=== PATIENT | female | born 1955 | race Caucasian/White ===

== ENCOUNTER 2022-07-22 13:40 | Emergency (ER) | payer OTHER, SELFPAY ==
[2022-07-22 13:55] VITALS: BP 127/83; PULSE 65; RESP 16; TEMP 36.6; O2SAT 95; BMI 32.1
--- NOTE | 2022-07-22 15:16 | CRLHL7_ITS ---
For Patients: As a result of the Century Cures Act, medical imaging exams and procedure reports are released immediately into your electronic medical record. You may view this report before your referring provider. If you have questions, please contact your health care provider. Indication: Epigastric and right upper quadrant pain. Technique: Sonography of the abdomen was performed limited to the structures discussed below Comparison: No Findings: Gallbladder wall thickness is normal. There is no sludge, calculus or pericholecystic fluid collection. The gallbladder wall measures 3 millimeters. There is no sonographic Mejia`s sign. The common duct measures 5 millimeters which is normal. An echogenic non shadowing focus is identified within the common bile duct measures about 4 millimeters. This could represent a small common duct stone. The liver is normal size without focal mass or biliary ductal dilatation. No perihepatic ascites. Probable mild steatosis. The right kidney is unremarkable in size and appearance. The right kidney measures 9.8 x 4.6 x 4.3 centimeters. Aorta and cava as visualized appears normal. The pancreas is partially visualized appear normal. Portions are obscured by bowel gas. Impression: 1. The gallbladder appears normal. No evidence of acute cholecystitis. 2. Possible stone within the common bile duct measuring 3 millimeters. However, there is no intra or extrahepatic biliary ductal dilatation. 3. The liver is normal in size. Abnormal echogenicity which suggests steatosis. Dictated by Harpal Rocha MD @ 07/22/2022 5:02:49 PM (Electronically Signed)
--- NOTE | 2022-07-22 15:18 | ED.ABDPAIN ---
HPI - Abdominal Pain General Chief Complaint: Abdominal Pain <Bennett Domingo MD - Last Filed: 07/24/22 12:29> Stated Complaint: Vomiting Abdominal Pain <Bennett Domingo MD - Last Filed: 07/24/22 12:29> Time Seen by Provider: 07/22/22 15:05 <Bennett Domingo MD - Last Filed: 07/24/22 12:29> History of Present Illness HPI narrative: 67-year-old woman presenting to the emergency department ambulatory with complaint of mid upper abdominal pain ?underneath your breast bone you know?. It is just a pain any could is been present now going on 36 hours. Started in the middle of the night. She is not feeling short of breath. The pain she gestures to the epigastrium and into both sides radiating around to the middle of her back. She can not get comfortable and really any position. Not really any exacerbating factors either other than direct pressure. The pain preceded vomiting where she will vomit up anything even Pepto-Bismol. She has been trying that for this discomfort. Has not had any hematemesis. She denies constipation in fact stools might be a little looser at times but not diarrheal. . Denies having a history of GERD//heartburn. She is not describing any lower extremity symptoms. Does not have a cardiac history that she knows of. No fevers. Family history with significant cardiac disease with father having had an SD by age of 50. Her daughter has had a cholecystectomy No regular health problems. She does have cervical radiculopathy of some sort with a history of injections. It has not been flaring lately. Takes only gabapentin and a multivitamin. <Bennett Domingo MD - Last Filed: 07/24/22 12:29> Related Data Allergies/Adverse Reactions: Allergies Allergy/AdvReac Type Severity Reaction Status Date / Time Pennicillins AdvReac Mild Uncoded 07/22/22 17:17 <Bennett Domingo MD - Last Filed: 07/24/22 12:29> Review of Systems Status of ROS Reports: 10 or more systems reviewed and unremarkable except as noted in History and below <Bennett Domingo MD - Last Filed: 07/24/22 12:29> PFSH PFSH Social History: Social History Smoking Status: Never smoker Do you use any of these nicotine containing products: None Second hand tobacco smoke exposure: No How often do you have a drink containing alcohol: never How often do you have six or more drinks on one occasion: Never AUDIT-C Alcohol total score: 0 Non-prescribed substance use: denies use service: No <Bennett Domingo MD - Last Filed: 07/24/22 12:29> Exam Narrative: Exam Narrative: Is generally well appearing. In no significant distress. Breathing easily. Oropharynx is moist with a black and tongue consistent with Pepto-Bismol Neck seems supple Lungs are clear Cardiovascular with regular rate and rhythm. I do not detect any murmur rub or gallop. Abdomen with normoactive bowel sounds is soft. Overweight. She is moderately tender without guarding in the epigastrium and under the right rib margin/right upper quadrant. No peritoneal signs generally. No masses. Extremities are without edema. She is moving all extremities without difficulty. A perfused peripherally. No sensory deficits apparent. <Bennett Domingo MD - Last Filed: 07/24/22 12:29> Const: Vital Signs, click to edit/add: Vital Signs - 24 hr 07/22/22 13:55 07/22/22 16:02 Temperature 97.9 F Pulse Rate [Pulse Oximeter] 65 65 Respiratory Rate 16 Blood Pressure [Ri ght Upper Arm] 127/83 127/69 Pulse Oximetry 95 97 Oxygen Delivery Me thod Room Air Room Air <Bennett Domingo MD - Last Filed: 07/24/22 12:29> Vital Signs, click to edit/add: Vital Signs - 24 hr 07/22/22 13:55 07/22/22 16:02 Temperature 97.9 F Pulse Rate [Pulse Oximeter] 65 65 Respiratory Rate 16 Blood Pressure [Ri ght Upper Arm] 127/83 127/69 Pulse Oximetry 95 97 Oxygen Delivery Me thod Room Air Room Air <Owen Sandoval MD - Last Filed: 07/22/22 17:57> Documenting provider has reviewed patient's vital signs: yes <Bennett Domingo MD - Last Filed: 07/24/22 12:29> Course Course Hospital Course: Initiating fluids, antiemetic, ketorolac. <Bennett Domingo MD - Last Filed: 07/24/22 12:29> Reevaluation(s) Reevaluation #1: not improved so gi cocktail trial which was of no help then given a morphine prn and sent for imaging. <Bennett Domingo MD - Last Filed: 07/24/22 12:29> Reevaluation #2: Discussed CT results with patient. Recommend omeprazole 20 mg daily and outpatient EGD. <Owen Sandoval MD - Last Filed: 07/22/22 17:57> Vital Signs Vital signs: Initial Vital Signs Temperature 97.9 F 07/22/22 13:55 Temperature Source Temporal Artery Scan 07/22/22 13:55 Pulse Rate 65 07/22/22 13:55 Pulse Rhythm 07/22/22 13:55 Respiratory Rate 16 07/22/22 13:55 Blood Pressure 127/83 07/22/22 13:55 Blood Pressure Mean 97 07/22/22 13:55 Blood Pressure Position Sitting 07/22/22 13:55 Pulse Oximetry 95 07/22/22 13:55 Oxygen Delivery Method 07/22/22 13:55 Vital Signs Temperature 97.9 F 07/22/22 13:55 Pulse Rate 65 07/22/22 13:55 Respiratory Rate 16 07/22/22 13:55 Blood Pressure 127/83 07/22/22 13:55 Pulse Oximetry 95 07/22/22 13:55 Oxygen Delivery Method 07/22/22 13:55 Temperature 97.9 F 07/22/22 13:55 Pulse Rate 66 07/22/22 18:05 Respiratory Rate 18 07/22/22 18:05 Blood Pressure 137/74 07/22/22 18:05 Pulse Oximetry 95 07/22/22 18:05 Oxygen Delivery Method 07/22/22 16:02 <Bennett Domingo MD - Last Filed: 07/24/22 12:29> Initial Vital Signs Temperature 97.9 F 07/22/22 13:55 Temperature Source Temporal Artery Scan 07/22/22 13:55 Pulse Rate 65 07/22/22 13:55 Pulse Rhythm 07/22/22 13:55 Respiratory Rate 16 07/22/22 13:55 Blood Pressure 127/83 07/22/22 13:55 Blood Pressure Mean 97 07/22/22 13:55 Blood Pressure Position Sitting 07/22/22 13:55 Pulse Oximetry 95 07/22/22 13:55 Oxygen Delivery Method 07/22/22 13:55 Vital Signs Temperature 97.9 F 07/22/22 13:55 Pulse Rate 65 07/22/22 13:55 Respiratory Rate 16 07/22/22 13:55 Blood Pressure 127/83 07/22/22 13:55 Pulse Oximetry 95 07/22/22 13:55 Oxygen Delivery Method 07/22/22 13:55 Temperature 97.9 F 07/22/22 13:55 Pulse Rate 66 07/22/22 18:05 Respiratory Rate 18 07/22/22 18:05 Blood Pressure 137/74 07/22/22 18:05 Pulse Oximetry 95 07/22/22 18:05 Oxygen Delivery Method 07/22/22 16:02 <Owen Sandoval MD - Last Filed: 07/22/22 17:57> MDM - Abdominal Pain MDM Narrative Medical decision making narrative: I would suspect gallbladder related pain most likely. Certainly could be vascular anomaly/dissection. dyspepsia could do this as well with esophageal spasming of some sort. Reproducibility duration and location suggests not cardiovascular. Will order limited abdominal ultrasound with initial order set. Tech reports that other than fatty liver abdominal ultrasound is unremarkable. Pending formal review. Pain is still present in location per physical exam. We will trial GI cocktail that does not help then morphine and move towards CT scan abdomen pelvis Patient feeling better. <Bennett Domingo MD - Last Filed: 07/24/22 12:29> I would suspect gallbladder related pain most likely. Certainly could be vascular anomaly/dissection. The dyspepsia could do this as well with esophageal spasming of some sort. Reproducibility duration and location suggests not cardiovascular. Will order limited abdominal ultrasound with initial order set. Tech reports that other than fatty liver abdominal ultrasound is unremarkable. Pending formal review. Pain is still present in location per physical exam. We will trial GI cocktail that does not help then morphine and move towards CT scan abdomen pelvis Patient feeling better. <Owen Sandoval MD - Last Filed: 07/22/22 17:57> Lab Data Attestation: I reviewed the patient's lab results. <Bennett Domingo MD - Last Filed: 07/24/22 12:29> Labs: Lab Results 07/22/22 07/22/22 07/22/22 Range/Units 15:31 15:45 15:45 WBC 8.27 (4.50-11.00) K/uL RBC 5.04 (4.00-5.20) m/uL Hgb 14.7 (12.0-16.0) gm/dL Hct 44.2 (33.0-51.0) % MCV 88 (80-100) fL MCH 29 (26-34) pg MCHC 33 (32-36) gm/dL RDW Coeff of Divya 12.4 (11.5-15.5) % Plt Count 215 (140-440) K/uL Neut % (Auto) 77.3 H (42.0-72.0) % Lymph % (Auto) 14.4 L (20-44) % [place] % (Auto) 6.7 (0.0-11.0) % Eos % (Auto) 0.7 (0.0-7.0) % Baso % (Auto) 0.4 (0.0-3.0) % Neut # (Auto) 6.40 (1.7-7.0) K/uL Lymph # (Auto) 1.20 (0.90-2.90) K/uL [place] # (Auto) 0.60 (0.00-0.90) K/UL Eos # (Auto) 0.06 (0.00-0.50) K/uL Baso # (Auto) 0.03 (0.00-0.30) K/uL Abs Immat Gran (auto) 0.04 (0.00-0.30) K/uL D-Dimer Quant (PE/DVT) (0.00-0.50) ug/ml Sodium 138 (135-149) mmol/L Potassium 4.1 (3.6-5.1) mmol/L Chloride 98 (96-114) mmol/L Carbon Dioxide 29 (20-32) mmol/L BUN 15 (7-30) mg/dL Creatinine 0.8 (0.5-1.5) mg/dL Estimated Creat Clear 42.32 Estimated GFR 82 ml/min Glucose 108 (60-115) mg/dL Calcium 9.9 (8.4-10.6) mg/dL Total Bilirubin 0.6 (0.1-1.5) mg/dL Direct Bilirubin 0.2 (0.0-0.5) mg/dL AST 29 (12-35) U/L ALT 25 (4-35) U/L Alkaline Phosphatase 97 (40-150) U/L Troponin I < 0.01 L (0.01-0.04) ng/mL C-Reactive Protein 0.8 (0.5-1.0) mg/dL Total Protein 8.1 (6.0-8.3) g/dL Albumin 4.9 (3.3-5.0) g/dL Lipase 66 (23-300) U/L Urine Color (Yellow) Urine Appearance (Clear) Urine pH (5.0-8.5) Ur Specific [place] (1.000-1.030) Urine Protein (Negative) Urine Glucose (UA) (Negative) Urine Ketones (Negative) Urine Blood (Negative) Urine Nitrite (Negative) Urine Bilirubin (Negative) Urine Urobilinogen (0.2-1.0) Ur Leukocyte Esterase (Negative) Urine RBC (0-2) Urine WBC (0-5) Ur Squamous Epith Cells (None-Few) Urine Bacteria (None) Ethyl Alcohol < 0.01 L (0.01-0.03) % SARS-CoV-2 (PCR) Negative SARS-CoV-2 (Negative) 07/22/22 07/22/22 Range/Units 15:45 17:05 WBC (4.50-11.00) K/uL RBC (4.00-5.20) m/uL Hgb (12.0-16.0) gm/dL Hct (33.0-51.0) % MCV (80-100) fL MCH (26-34) pg MCHC (32-36) gm/dL RDW Coeff of Divya (11.5-15.5) % Plt Count (140-440) K/uL Neut % (Auto) (42.0-72.0) % Lymph % (Auto) (20-44) % [place] % (Auto) (0.0-11.0) % Eos % (Auto) (0.0-7.0) % Baso % (Auto) (0.0-3.0) % Neut # (Auto) (1.7-7.0) K/uL Lymph # (Auto) (0.90-2.90) K/uL [place] # (Auto) (0.00-0.90) K/UL Eos # (Auto) (0.00-0.50) K/uL Baso # (Auto) (0.00-0.30) K/uL Abs Immat Gran (auto) (0.00-0.30) K/uL D-Dimer Quant (PE/DVT) 1.76 H (0.00-0.50) ug/ml Sodium (135-149) mmol/L Potassium (3.6-5.1) mmol/L Chloride (96-114) mmol/L Carbon Dioxide (20-32) mmol/L BUN (7-30) mg/dL Creatinine (0.5-1.5) mg/dL Estimated Creat Clear Estimated GFR ml/min Glucose (60-115) mg/dL Calcium (8.4-10.6) mg/dL Total Bilirubin (0.1-1.5) mg/dL Direct Bilirubin (0.0-0.5) mg/dL AST (12-35) U/L ALT (4-35) U/L Alkaline Phosphatase (40-150) U/L Troponin I (0.01-0.04) ng/mL C-Reactive Protein (0.5-1.0) mg/dL Total Protein (6.0-8.3) g/dL Albumin (3.3-5.0) g/dL Lipase (23-300) U/L Urine Color Yellow (Yellow) Urine Appearance Clear (Clear) Urine pH 6.5 (5.0-8.5) Ur Specific [place] 1.010 (1.000-1.030) Urine Protein Negative (Negative) Urine Glucose (UA) Negative (Negative) Urine Ketones Negative (Negative) Urine Blood Trace-intact A (Negative) Urine Nitrite Negative (Negative) Urine Bilirubin Negative (Negative) Urine Urobilinogen 0.2 (0.2-1.0) Ur Leukocyte Esterase 1+ A (Negative) Urine RBC 2-5 A (0-2) Urine WBC 10-25 A (0-5) Ur Squamous Epith Cells Few (None-Few) Urine Bacteria Few A (None) Ethyl Alcohol (0.01-0.03) % SARS-CoV-2 (PCR) (Negative) <Bennett Domingo MD - Last Filed: 07/24/22 12:29> Lab Results 07/22/22 07/22/22 07/22/22 Range/Units 15:31 15:45 15:45 WBC 8.27 (4.50-11.00) K/uL RBC 5.04 (4.00-5.20) m/uL Hgb 14.7 (12.0-16.0) gm/dL Hct 44.2 (33.0-51.0) % MCV 88 (80-100) fL MCH 29 (26-34) pg MCHC 33 (32-36) gm/dL RDW Coeff of Divya 12.4 (11.5-15.5) % Plt Count 215 (140-440) K/uL Neut % (Auto) 77.3 H (42.0-72.0) % Lymph % (Auto) 14.4 L (20-44) % [place] % (Auto) 6.7 (0.0-11.0) % Eos % (Auto) 0.7 (0.0-7.0) % Baso % (Auto) 0.4 (0.0-3.0) % Neut # (Auto) 6.40 (1.7-7.0) K/uL Lymph # (Auto) 1.20 (0.90-2.90) K/uL [place] # (Auto) 0.60 (0.00-0.90) K/UL Eos # (Auto) 0.06 (0.00-0.50) K/uL Baso # (Auto) 0.03 (0.00-0.30) K/uL Abs Immat Gran (auto) 0.04 (0.00-0.30) K/uL D-Dimer Quant (PE/DVT) (0.00-0.50) ug/ml Sodium 138 (135-149) mmol/L Potassium 4.1 (3.6-5.1) mmol/L Chloride 98 (96-114) mmol/L Carbon Dioxide 29 (20-32) mmol/L BUN 15 (7-30) mg/dL Creatinine 0.8 (0.5-1.5) mg/dL Estimated Creat Clear 42.32 Estimated GFR 82 ml/min Glucose 108 (60-115) mg/dL Calcium 9.9 (8.4-10.6) mg/dL Total Bilirubin 0.6 (0.1-1.5) mg/dL Direct Bilirubin 0.2 (0.0-0.5) mg/dL AST 29 (12-35) U/L ALT 25 (4-35) U/L Alkaline Phosphatase 97 (40-150) U/L Troponin I < 0.01 L (0.01-0.04) ng/mL C-Reactive Protein 0.8 (0.5-1.0) mg/dL Total Protein 8.1 (6.0-8.3) g/dL Albumin 4.9 (3.3-5.0) g/dL Lipase 66 (23-300) U/L Urine Color (Yellow) Urine Appearance (Clear) Urine pH (5.0-8.5) Ur Specific [place] (1.000-1.030) Urine Protein (Negative) Urine Glucose (UA) (Negative) Urine Ketones (Negative) Urine Blood (Negative) Urine Nitrite (Negative) Urine Bilirubin (Negative) Urine Urobilinogen (0.2-1.0) Ur Leukocyte Esterase (Negative) Urine RBC (0-2) Urine WBC (0-5) Ur Squamous Epith Cells (None-Few) Urine Bacteria (None) Ethyl Alcohol < 0.01 L (0.01-0.03) % SARS-CoV-2 (PCR) Negative SARS-CoV-2 (Negative) 07/22/22 07/22/22 Range/Units 15:45 17:05 WBC (4.50-11.00) K/uL RBC (4.00-5.20) m/uL Hgb (12.0-16.0) gm/dL Hct (33.0-51.0) % MCV (80-100) fL MCH (26-34) pg MCHC (32-36) gm/dL RDW Coeff of Divya (11.5-15.5) % Plt Count (140-440) K/uL Neut % (Auto) (42.0-72.0) % Lymph % (Auto) (20-44) % [place] % (Auto) (0.0-11.0) % Eos % (Auto) (0.0-7.0) % Baso % (Auto) (0.0-3.0) % Neut # (Auto) (1.7-7.0) K/uL Lymph # (Auto) (0.90-2.90) K/uL [place] # (Auto) (0.00-0.90) K/UL Eos # (Auto) (0.00-0.50) K/uL Baso # (Auto) (0.00-0.30) K/uL Abs Immat Gran (auto) (0.00-0.30) K/uL D-Dimer Quant (PE/DVT) 1.76 H (0.00-0.50) ug/ml Sodium (135-149) mmol/L Potassium (3.6-5.1) mmol/L Chloride (96-114) mmol/L Carbon Dioxide (20-32) mmol/L BUN (7-30) mg/dL Creatinine (0.5-1.5) mg/dL Estimated Creat Clear Estimated GFR ml/min Glucose (60-115) mg/dL Calcium (8.4-10.6) mg/dL Total Bilirubin (0.1-1.5) mg/dL Direct Bilirubin (0.0-0.5) mg/dL AST (12-35) U/L ALT (4-35) U/L Alkaline Phosphatase (40-150) U/L Troponin I (0.01-0.04) ng/mL C-Reactive Protein (0.5-1.0) mg/dL Total Protein (6.0-8.3) g/dL Albumin (3.3-5.0) g/dL Lipase (23-300) U/L Urine Color Yellow (Yellow) Urine Appearance Clear (Clear) Urine pH 6.5 (5.0-8.5) Ur Specific [place] 1.010 (1.000-1.030) Urine Protein Negative (Negative) Urine Glucose (UA) Negative (Negative) Urine Ketones Negative (Negative) Urine Blood Trace-intact A (Negative) Urine Nitrite Negative (Negative) Urine Bilirubin Negative (Negative) Urine Urobilinogen 0.2 (0.2-1.0) Ur Leukocyte Esterase 1+ A (Negative) Urine RBC 2-5 A (0-2) Urine WBC 10-25 A (0-5) Ur Squamous Epith Cells Few (None-Few) Urine Bacteria Few A (None) Ethyl Alcohol (0.01-0.03) % SARS-CoV-2 (PCR) (Negative) <Owen Sandoval MD - Last Filed: 07/22/22 17:57> Imaging Data CT scan - abdomen: Radiologist's impression: Patient: Radha Graff MR#: [id number] : 1955 Acct:[id number] Loc: ED Service Date: 07/22/[address]: Ordering Physician: Bennett Domingo MD Date of Service: 07/22/22 Procedure(s): CT abdomen pelvis w con Accession Number(s): [id number] cc: Vandana Sheppard DO; Bennett Domingo MD~ For Patients:? As a result of the Cures Act, medical imaging exams and procedure reports are released immediately into your electronic medical record.? You may view this report before your referring provider.? If you have questions, please contact your health care provider. INDICATION: Epigastric and right upper quadrant pain. COMPARISON: No prior CTs. Ultrasound reviewed from earlier the same day. TECHNIQUE: CT examination of the abdomen and pelvis was performed following the uneventful intravenous administration of 83 cc of Isovue 370. Thin section axial images were obtained from the lung bases through the pubic symphysis. ?Oral contrast was not administered.? Please note that all CT scans at this facility use dose modulation, iterative reconstruction, and/or weight-based dosing when appropriate to reduce radiation dose to as low as reasonably achievable. FINDINGS: LUNG BASES: The lung bases as visualized appear normal.The heart size is normal at the lung bases. Small hiatal hernia LIVER/BILIARY SYSTEM:The liver is normal in size and configuration. There is no focal mass and there is no intra- or extra hepatic biliary ductal dilatation.Hepatic steatosis. Gallbladder appears normal. No biliary ductal dilatation the filling defect questioned in the common on the ultrasound is not visible on this examination. ADRENALS: Normal KIDNEYS, URETERS and BLADDER:The kidneys appear normal. No visible mass, calculus or hydronephrosis. The ureters and bladder as visualized appear normal. SPLEEN:Granulomatous calcifications. PANCREAS: Appears normal. RETROPERITONEUM and MESENTERY: There is no mass, adenopathy or aortic aneurysm. GASTROINTESTINAL SYSTEM: Small hiatal hernia. Significant edema of the wall of the corpus and of the antrum of the stomach. This is usually due to gastritis though this should be followed up. No directly visible ulceration or mass. The colon appears normal other than scattered diverticulosis. PELVIS: No mass, adenopathy or free fluid. OSSEOUS STRUCTURES and ABDOMINAL WALL: There is an age-appropriate appearance of the osseous structures.No significant abdominal wall defect. OTHER: No free fluid or free air. IMPRESSION: 1. Significant edema of the wall of the corpus and of the antrum of the stomach. This is usually due to gastritis. No directly visible ulceration or mass. Follow-up evaluation is advised. 2. Other incidental nonacute appearing findings as above. 3. A small filling defect was suggested in the common duct on the ultrasound. No filling defect is not visible on the CT. Please note that all CT scans at this facility use dose modulation, iterative reconstruction, and/or weight-based dosing when appropriate to reduce radiation dose to as low as reasonably achievable. Dictated by Harpal Rocha MD @ 07/22/2022 5:41:56 PM <Owen Sandoval MD - Last Filed: 07/22/22 17:57> Discharge Plan Discharge Clinical Impression: Gastritis <Bennett Domingo MD - Last Filed: 07/24/22 12:29> Patient Disposition: Home, Self-Care <Bennett Domingo MD - Last Filed: 07/24/22 12:29> Condition: Improved <Bennett Domingo MD - Last Filed: 07/24/22 12:29> Additional Instructions: Avoid taking medicines like ibuprofen, aspirin or naproxen. Take omeprazole 20 mg daily. See your doctor in the next week for recheck. I recommend you have upper endoscopy to evaluate your stomach lining. Return to the emergency room if you see blood in your stool or if you vomit blood. <Bennett Domingo MD - Last Filed: 07/24/22 12:29> Discharge Diet: Regular <Bennett Domingo MD - Last Filed: 07/24/22 12:29> Regular <Owen Sandoval MD - Last Filed: 07/22/22 17:57> Follow Up/Referrals: Vandana Sheppard DO [Primary Care Provider] - <Bennett Domingo MD - Last Filed: 07/24/22 12:29> Stand Alone Forms: [facility] Info Instructions <Bennett Domingo MD - Last Filed: 07/24/22 12:29>
[2022-07-22] MEDS: 0.9 % SODIUM CHLORIDE 1000 ml 1,000 ML IV (15:45)
[2022-07-22] MEDS: ONDANSETRON 2 MG/ML inj 4 MG IVP (15:50)
[2022-07-22 15:52] LABS: Basophils Absolute Auto 0.03 K/uL (0.00-0.30); Basophils Percent Auto 0.4 % (0.0-3.0); Eosinophils Absolute Auto 0.06 K/uL (0.00-0.50); Eosinophils Percent Auto 0.7 % (0.0-7.0); Hematocrit 44.2 % (33.0-51.0); Hemoglobin* 14.7 gm/dL (12.0-16.0); Immature Granulocytes Abs Auto 0.04 K/uL (0.00-0.30); Lymphocytes Percent Auto 14.4 % (20-44); Mean Corpuscular HGB Conc 33 gm/dL (32-36); Mean Corpuscular Hemoglobin 29 pg (26-34); Mean Corpuscular Volume 88 fL (80-100); Monocytes Percent Auto 6.7 % (0.0-11.0); Neutrophils Percent Auto 77.3 % (42.0-72.0); Platelet Count* 215 K/uL (140-440); RDW Coefficient of Variation % 12.4 % (11.5-15.5); Red Blood Count 5.04 m/uL (4.00-5.20); White Blood Count* 8.27 K/uL (4.50-11.00)
[2022-07-22] MEDS: KETOROLAC 30 MG/ML inj IVP (15:52)
[2022-07-22 15:56] LABS: Slide Review Reflex No
[2022-07-22 16:02] VITALS: BP 127/69; PULSE 65; O2SAT 97
[2022-07-22 16:08] LABS: Chloride* 98 mmol/L (96-114)
[2022-07-22 16:09] LABS: Albumin* 4.9 g/dL (3.3-5.0); Potassium* 4.1 mmol/L (3.6-5.1); Sodium* 138 mmol/L (135-149)
[2022-07-22 16:09] LABS: SARS PCR* Negative SARS-CoV-2 (Negative)
[2022-07-22 16:11] LABS: Creatinine* 0.8 mg/dL (0.5-1.5); Est. Creatinine Clearance* 42.32; Estimated Glomerular Filt Rate 82 ml/min
[2022-07-22 16:12] LABS: Alanine Aminotransferase* 25 U/L (4-35); Alkaline Phosphatase* 97 U/L (40-150); Aspartate Amino Transferase* 29 U/L (12-35); Bilirubin Direct* 0.2 mg/dL (0.0-0.5); Bilirubin Total* 0.6 mg/dL (0.1-1.5); Blood Urea Nitrogen* 15 mg/dL (7-30); Calcium* 9.9 mg/dL (8.4-10.6); Carbon Dioxide* 29 mmol/L (20-32); Glucose* 108 mg/dL (60-115); Lipase* 66 U/L (23-300); Total Protein* 8.1 g/dL (6.0-8.3)
[2022-07-22 16:15] LABS: C Reactive Protein* 0.8 mg/dL (0.5-1.0)
[2022-07-22 16:17] LABS: Ethanol* < 0.01 % (0.01-0.03)
--- NOTE | 2022-07-22 16:36 | CRLHL7_ITS ---
For Patients: As a result of the Century Cures Act, medical imaging exams and procedure reports are released immediately into your electronic medical record. You may view this report before your referring provider. If you have questions, please contact your health care provider. INDICATION: Epigastric and right upper quadrant pain. COMPARISON: No prior CTs. Ultrasound reviewed from earlier the same day. TECHNIQUE: CT examination of the abdomen and pelvis was performed following the uneventful intravenous administration of 83 cc of Isovue 370. Thin section axial images were obtained from the lung bases through the pubic symphysis. Oral contrast was not administered. Please note that all CT scans at this facility use dose modulation, iterative reconstruction, and/or weight-based dosing when appropriate to reduce radiation dose to as low as reasonably achievable. FINDINGS: LUNG BASES: The lung bases as visualized appear normal.The heart size is normal at the lung bases. Small hiatal hernia LIVER/BILIARY SYSTEM:The liver is normal in size and configuration. There is no focal mass and there is no intra- or extra hepatic biliary ductal dilatation.Hepatic steatosis. Gallbladder appears normal. No biliary ductal dilatation the filling defect questioned in the common on the ultrasound is not visible on this examination. ADRENALS: Normal KIDNEYS, URETERS and BLADDER:The kidneys appear normal. No visible mass, calculus or hydronephrosis. The ureters and bladder as visualized appear normal. SPLEEN:Granulomatous calcifications. PANCREAS: Appears normal. RETROPERITONEUM and MESENTERY: There is no mass, adenopathy or aortic aneurysm. GASTROINTESTINAL SYSTEM: Small hiatal hernia. Significant edema of the wall of the corpus and of the antrum of the stomach. This is usually due to gastritis though this should be followed up. No directly visible ulceration or mass. The colon appears normal other than scattered diverticulosis. PELVIS: No mass, adenopathy or free fluid. OSSEOUS STRUCTURES and ABDOMINAL WALL: There is an age-appropriate appearance of the osseous structures.No significant abdominal wall defect. OTHER: No free fluid or free air. IMPRESSION: 1. Significant edema of the wall of the corpus and of the antrum of the stomach. This is usually due to gastritis. No directly visible ulceration or mass. Follow-up evaluation is advised. 2. Other incidental nonacute appearing findings as above. 3. A small filling defect was suggested in the common duct on the ultrasound. No filling defect is not visible on the CT. Please note that all CT scans at this facility use dose modulation, iterative reconstruction, and/or weight-based dosing when appropriate to reduce radiation dose to as low as reasonably achievable. Dictated by Harpal Rocha MD @ 07/22/2022 5:41:56 PM (Electronically Signed)
[2022-07-22] MEDS: GI COCKTAIL (VISC LIDO/ANTACID) 30 ML PO (17:02)
--- NOTE | 2022-07-22 17:19 | ED.NURSE ---
did report that the gi cocktail has helped very little. pain was less with time. 03/19
[2022-07-22 17:47] LABS: Appearance Urine Clear (Clear); Bilirubin Urine Negative (Negative); Blood Urine Trace-intact (Negative); Color Urine Yellow (Yellow); Glucose Urine Negative (Negative); Ketones Urine Negative (Negative); Leukocyte Esterase Urine 1+ (Negative); Nitrite Urine Negative (Negative); Protein Urine Negative (Negative); Urobilinogen Urine 0.2 (0.2-1.0); pH Urine 6.5 (5.0-8.5)
[2022-07-22 18:01] LABS: Bacteria Urine Few; Squamous Epithelial Cell Urine Few (None-Few)
[2022-07-22 18:05] VITALS: BP 137/74; PULSE 66; RESP 18; O2SAT 95
[2022-07-22 18:31] LABS: D Dimer Quantitative* 1.76 ug/ml (0.00-0.50)
[2022-07-22 19:00] LABS: Troponin I* < 0.01 ng/mL (0.01-0.04)
== END 2022-07-22 18:56 | disposition home or self-care (01) ==
PROVIDERS: Family Medicine; Emergency Provider Family Medicine; PCP Family Medicine
DX: K29.70 Gastritis, unspecified, without bleeding (principal)
CPT/HCPCS: 36415; 74177; 76705; 80048; 80076; 81001; 82077; 83690; 84484; 85025; 85379; 86140; 87086; 87186; 87635; 96361; 96374; 96375; 99284; A9270; J1885; J2405; J7030; Q9967